=== PATIENT | female | born 1970 | race Caucasian/White ===

== ENCOUNTER 2018-04-16 15:52 | Emergency (ER) | payer SELFPAY ==
[2018-04-16 15:59] VITALS: BP 116/54
[2018-04-16] MEDS ORDERED: ACETAMINOPHEN 325 MG TABLET PO ONE (16:31)
[2018-04-16] MEDS ORDERED: NORMAL SALINE 1000 ML 1,000 ML IV ONE ×2 (17:13)
--- NOTE | 2018-04-16 17:15 | ER Document Report ---
ED Medical Screen (RME) - General Chief Complaint: Memory Loss Stated Complaint: HEADACHE Time Seen by Provider: 04/16/18 17:08 TRAVEL OUTSIDE OF THE [place] IN LAST 30 DAYS: No - HPI Patient complains to provider of: Fever left-sided back pain Notes: 04/16/18 17:15 Ill-appearing female presents with fever for 3 days increasing left back pain. She now has left flank pain 10/10 throbbing in nature with radiation to her left lower quadrant and her front abdomen. Nothing is made the pain better or worse. She also states she feels "on drugs not able to focus. Denies neck pain, trauma or other issues. Patient states she had fever high as 104 at home. Reliliam's as well. - Related Data Allergies/Adverse Reactions: amoxicillin Allergy (Verified 06/04/16 04:29) cephalexin [From Keflex] Allergy (Verified 06/04/16 18:05) Penicillins Allergy (Verified 06/04/16 04:29) Past Medical History - Social History Chew tobacco use (# tins/day): No Frequency of alcohol use: Occasional Drug Abuse: None Renal/ Medical History: Denies: Hx Peritoneal Dialysis Psychiatric Medical History: Reports: Hx Depression Past Surgical History: Reports: Hx Appendectomy, Hx Orthopedic Surgery - jaw, neck, Hx Tubal Ligation Physical Exam - Vital signs Vitals: Temp Pulse Resp BP Pulse Ox 102.6 F H 107 H 16 116/54 L 95 04/16/18 15:55 04/16/18 15:55 04/16/18 15:55 04/16/18 15:55 04/16/18 15:55 Course - Vital Signs Vital signs: Temp Pulse Resp BP Pulse Ox 102.6 F H 107 H 16 116/54 L 95 04/16/18 15:55 04/16/18 15:55 04/16/18 15:55 04/16/18 15:55 04/16/18 15:55
[2018-04-16 18:08] LABS: ABSOLUTE LYMPHOCYTES (AUTO) 0.9 10^3/uL (0.5-4.7); ABSOLUTE MONOCYTES (AUTO) 1.6 10^3/uL (0.1-1.4); ABSOLUTE NEUT (AUTO) 9.6 10^3/uL (1.7-8.2); BASOPHILS % (AUTO) 0.3 % (0-2); EOSINOPHILS % (AUTO) 0.3 % (0-6); HEMATOCRIT 41.2 % (36.0-47.0); HEMOGLOBIN 14.1 g/dL (12.0-15.5); LYMPHOCYTES % (AUTO) 7.2 % (13-45); MEAN CORPUSCULAR HEMOGLOBIN 31.9 pg (27.0-33.4); MEAN CORPUSCULAR HGB CONC 34.2 g/dL (32.0-36.0); MEAN CORPUSCULAR VOLUME 93 fl (80-97); MONOCYTES % (AUTO) 13.3 % (3-13); PLATELET COUNT 232 10^3/uL (150-450); RED BLOOD COUNT 4.42 10^6/uL (3.72-5.28); RED CELL DISTRIBUTION WIDTH 13.2 % (11.5-14.0); SEGMENTED NEUTROPHILS % (AUTO) 78.9 % (42-78); TOTAL CELLS COUNTED % (AUTO) 100 %; WHITE BLOOD COUNT 12.2 10^3/uL (4.0-10.5)
[2018-04-16 18:28] LABS: ALANINE AMINOTRANSFERASE 23 U/L (9-52); ALBUMIN 3.9 g/dL (3.5-5.0); ALKALINE PHOSPHATASE 76 U/L (38-126); ANION GAP 12 (5-19); ASPARTATE AMINO TRANSFERASE 16 U/L (14-36); BILIRUBIN,DIRECT 0.4 mg/dL (0.0-0.4); BILIRUBIN,TOTAL 0.5 mg/dL (0.2-1.3); BLOOD UREA NITROGEN 14 mg/dL (7-20); CALCIUM 9.3 mg/dL (8.4-10.2); CARBON DIOXIDE 25 mmol/L (22-30); CHLORIDE 98 mmol/L (98-107); GLUCOSE 99 mg/dL (75-110); POTASSIUM 3.6 mmol/L (3.6-5.0); SODIUM 134.8 mmol/L (137-145); TOTAL PROTEIN 7.2 g/dL (6.3-8.2)
--- NOTE | 2018-04-16 18:58 | ER Document Report ---
ED General - General Chief Complaint: Memory Loss Stated Complaint: HEADACHE Time Seen by Provider: 04/16/18 17:08 Mode of Arrival: Ambulatory Information source: Patient Notes: 47-year-old female presents with complaints of left flank pain pungent urine smell of 3 4 day duration. Patient notes fever over the past few days states that she has had generalized body aches feels like it has been foggy. She denies any actual neck pain or neck stiffness. Patient is insistent that she cannot be admitted due to work TRAVEL OUTSIDE OF THE [place] IN LAST 30 DAYS: No - HPI Onset: Other - 3-4 day duration Onset/Duration: Persistent Quality of pain: Achy Severity: Moderate Pain Level: 2 Associated symptoms: Body/muscle aches, Fever, Nausea, Other Exacerbated by: Other - Urination Relieved by: Denies Similar symptoms previously: No Recently seen / treated by doctor: No - Related Data Allergies/Adverse Reactions: amoxicillin Allergy (Verified 06/04/16 04:29) cephalexin [From Keflex] Allergy (Verified 06/04/16 18:05) Penicillins Allergy (Verified 06/04/16 04:29) Past Medical History - Social History Smoking Status: Current Every Day Smoker Cigarette use (# per day): Yes Chew tobacco use (# tins/day): No Smoking Education Provided: No Frequency of alcohol use: Occasional Drug Abuse: None Family History: Reviewed & Not Pertinent Patient has suicidal ideation: No Patient has homicidal ideation: No Renal/ Medical History: Denies: Hx Peritoneal Dialysis Psychiatric Medical History: Reports: Hx Depression Past Surgical History: Reports: Hx Appendectomy, Hx Orthopedic Surgery - jaw, neck, Hx Tubal Ligation Review of Systems - Review of Systems Notes: REVIEW OF SYSTEMS: CONSTITUTIONAL : Admits to fevers and chills EENT: Denies eye, ear, throat, or mouth pain or symptoms. Denies nasal or sinus congestion or discharge. Denies throat, tongue, or mouth swelling or difficulty swallowing. CARDIOVASCULAR: Denies chest pain. Denies palpitations or racing or irregular heart beat. Denies ankle edema. RESPIRATORY: Denies cough, cold, or chest congestion. Denies shortness of breath, difficulty breathing, or wheezing. GASTROINTESTINAL: Admits to left flank pain GENITOURINARY: Admits to difficulty urinating FEMALE GENITOURINARY: Denies vaginal bleeding, heavy or abnormal periods, irregular periods. Denies vaginal discharge or odor. MUSCULOSKELETAL: Denies back or neck pain or stiffness. Denies joint pain or swelling. SKIN: Denies rash, lesions or sores. HEMATOLOGIC : Denies easy bruising or bleeding. LYMPHATIC: Denies swollen, enlarged glands. NEUROLOGICAL: Admits to foggy memory PSYCHIATRIC: Denies anxiety or stress. Denies depression, suicidal ideation, or homicidal ideation. ALL OTHER SYSTEMS REVIEWED AND NEGATIVE. PHYSICAL EXAMINATION: GENERAL: Well-appearing, well-nourished and in no acute distress. Febrile HEAD: Atraumatic, normocephalic. EYES: Pupils equal round and reactive to light, extraocular movements intact, conjunctiva are normal. ENT: Nares patent, oropharynx clear without exudates. Moist mucous membranes. NECK: Normal range of motion, supple without lymphadenopathy LUNGS: Breath sounds clear to auscultation bilaterally and equal. No wheezes rales or rhonchi. HEART: Initially tachycardic ABDOMEN: Soft, nontender, nondistended abdomen. Left CVA tenderness no guarding , no rebound. No masses appreciated. Female : deferred Musculoskeletal: Normal range of motion, no pitting or edema. No cyanosis. NEUROLOGICAL: Cranial nerves grossly intact. Normal speech, normal gait. Normal sensory, motor exams PSYCH: Normal mood, normal affect. SKIN: Warm, Dry, normal turgor, no rashes or lesions noted. Dictation was performed using [employer] voice recognition software Physical Exam - Vital signs Vitals: Temp Pulse Resp BP Pulse Ox 102.6 F H 107 H 16 116/54 L 95 04/16/18 15:55 04/16/18 15:55 04/16/18 15:55 04/16/18 15:55 04/16/18 15:55 Course - Re-evaluation Re-evalutation: 04/16/18 18:57 Patient has probable pyelonephritis she is refusing to be admitted admits probable sepsis criteria 04/16/18 19:21 Patient's urinalysis is consistent with a UTI 04/16/18 20:24 Patient still refuses to be admitted, explained to her my concerns she states she will return if she feels bad, I will treat her at home with the hopes that symptoms improve After performing a Medical Screening Examination, I estimate there is LOW risk for ACUTE APPENDICITIS, BOWEL OBSTRUCTION, ACUTE CHOLECYSTITIS, PERFORATED DIVERTICULITIS, INCARCERATED HERNIA, PANCREATITIS, PELVIC INFLAMMATORY DISEASE, PERFORATED ULCER, ECTOPIC , or TUBO-OVARIAN ABSCESS, thus I consider the discharge disposition reasonable. Also, there is no evidence or peritonitis , sepsis, or toxicity. I have reevaluated this patient multiple times and no significant life threatening changes are noted. The patient and I have discussed the diagnosis and risks, and we agree with discharging home with close follow-up with the understanding that symptoms and presentations can change. We also discussed returning to the Emergency Department immediately if new or worsening symptoms occur. We have discussed the symptoms which are most concerning (e.g., bloody stool, fever, changing or worsening pain, vomiting) that necessitate immediate return. - Vital Signs Vital signs: Temp Pulse Resp BP Pulse Ox 102.6 F H 107 H 16 116/54 L 95 04/16/18 15:55 04/16/18 15:55 04/16/18 15:55 04/16/18 15:55 04/16/18 15:55 - Laboratory Result Diagrams: 04/16/18 17:44 04/16/18 17:44 Laboratory results interpreted by me: 04/16/18 04/16/18 04/16/18 17:44 17:44 17:44 WBC 12.2 H Seg Neutrophils % 78.9 H Lymphocytes % 7.2 L Monocytes % 13.3 H Absolute Neutrophils 9.6 H Absolute Monocytes 1.6 H Sodium 134.8 L Urine Protein 30 H Urine Ketones TRACE H Urine Blood LARGE H Urine Nitrite POSITIVE H Urine Urobilinogen 2.0 H Ur Leukocyte Esterase LARGE H Discharge - Discharge Clinical Impression: Pyelonephritis Fever Qualifiers: Fever type: unspecified Qualified Code(s): R50.9 - Fever, unspecified Condition: Stable Disposition: HOME, SELF-CARE Instructions: Pyelonephritis ([facility]) Additional Instructions: If symptoms are not improving you must return immediately Prescriptions: Ciprofloxacin HCl [Cipro 500 mg Tablet] 500 mg PO BID #20 tablet Metoclopramide HCl [Reglan 10 mg Tablet] 1 - 2 tab PO ASDIR PRN #25 tablet PRN Reason: Phenazopyridine HCl [Pyridium 200 mg Tablet] 200 mg PO TID #15 tablet
[2018-04-16] MEDS ORDERED: CIPROFLOXACIN 400 MG/D5W RTU 400 MG/200 ML RTUPB IV SCH (19:00)
[2018-04-16 19:18] LABS: APPEARANCE,URINE CLOUDY; BILIRUBIN,URINE NEGATIVE (NEGATIVE); COLOR,URINE YELLOW; GLUCOSE, URINE NEGATIVE (NEGATIVE); KETONES,URINE TRACE mg/dL (NEGATIVE); LEUKOCYTE ESTERASE,URINE LARGE (NEGATIVE); NITRITE,URINE POSITIVE (NEGATIVE); PROTEIN,URINE 30 mg/dL (NEGATIVE); URINE SPECIFIC GRAVITY 1.012
== END 2018-04-16 20:37 | disposition home or self-care (01) ==
LOC: ER 15:52
DX: N12 Tubulo-interstitial nephritis, not specified as acute or chronic (principal); R50.9 Fever, unspecified; R41.3 Other amnesia; R51 Headache; R10.9 Unspecified abdominal pain; M79.1 Myalgia; R11.0 Nausea; F17.210 Nicotine dependence, cigarettes, uncomplicated
CPT/HCPCS: 99284; 96361; 96365; 36415; 87040; 83605; 85025; 80076; 80048; 81001; J7030; J0744